=== PATIENT | female | born 1955 | race Caucasian/White ===

== ENCOUNTER 2018-09-07 11:01 | Day surgery (SDC) | payer BC ==
--- NOTE | 2018-09-07 06:34 | History and Physical Report ---
DATE: 09/06/2018. CHIEF COMPLAINT AND HISTORY OF CHIEF COMPLAINT: This patient presents with a history of an intractable lumbar radiculopathy. Due to the failure of all therapies, she presents today for an implanted spinal catheter infusion trial with hydromorphone to determine if the implantation of a permanent system can be of any value in pain control. PAST MEDICAL HISTORY: Noncontributory. PAST SURGICAL HISTORY: Multiple shoulder surgeries, knee surgery, scapular surgery. MEDICATIONS ON ADMISSION: To be provided. ALLERGIES: None. SOCIAL HISTORY: Caffeine. FAMILY HISTORY: Hypertension, coronary artery disease, cancer. REVIEW OF SYSTEMS: The patient is appropriate and in no acute distress. The remainder of the systems review shows headaches, peripheral edema, reflux, degenerative arthritis, fibromyalgia, depression, difficulty sleeping. PHYSICAL EXAMINATION: General: Height and weight unavailable. Vital Signs: Not available. HEENT: Within normal limits. Lungs: Clear. Heart: Regular rate and rhythm. Abdomen: Nontender. Musculoskeletal: Examination of the musculoskeletal system shows diffuse tenderness throughout the lumbar spine. Range of motion does produce pain into both legs across the front and back surfaces. Motor function shows mild weakness to the right. Sensory abnormalities noted bilaterally. Neurologic: Cranial nerves are intact. Ambulation: Assistive device utilized. IMPRESSION: LUMBAR RADICULOPATHY, ICD-10 CODE M54.16 AND M54.17. PLAN: The patient is here for an implanted catheter infusion trial with hydromorphone to determine if the implantation of a permanent system can be of any value in pain control. The potential risks, side effects, and complications have all been carefully reviewed and discussed. Information provided through the ore crushing dust collector including CD Rom also explaining the procedure and surgery were discussed and reviewed. The patient was put in contact with a clinical specialist for [employer] who also discussed and reviewed risks, side effects, and complications. She understands and has consented and is here for the trial. The procedure will be considered outpatient, although an overnight stay will be evaluated. An epidural blood patch will be performed which will result in the patient lying flat for four hours and then be slowly elevated over one hour. At that point, she can be evaluated for discharge. JOB NUMBER: [id number] cc: Bereket Mayers M.D. MTDD
[~2018-09-07 11:01] MED LIST: ACETAMINOPHEN 1,000 MG/100 ML BTL IV ONE; CEFAZOLIN 2 Gram 2 GM/50 ML BAG IVPB ONE; FAMOTIDINE 20MG TABLET PO ONE; HYDROMORPHONE PF 2MG/ML AMP 0.008 MG in 0.9 % SODIUM CHLORIDE 10ML VIA 0.996 ML IV ONE; HYDROMORPHONE PF 2MG/ML AMP 8 MG in 0.9 % SODIUM CHLORIDE 500ML 496 ML IV ONE; MECLIZINE 25 MG TABLET PO ONE; METOCLOPRAMIDE 10 MG TABLET PO ONE
[2018-09-07] MEDS ORDERED: MIDAZOLAM HCL 2MG/2ML VIAL IV ONE (11:02)
[2018-09-07] MEDS ORDERED: 0.9 % SODIUM CHLORIDE 10 ML VIAL IVP ONE (11:02)
[2018-09-07] MEDS ORDERED: PROPOFOL 10 MG/ML VIAL IV ONE (11:02)
[2018-09-07] MEDS ORDERED: CEFAZOLIN 1G VIAL IM ONE (11:02)
[2018-09-07] MEDS ORDERED: LIDOCAINE 1% W/EPI 1:200,000 MPF 30ML SQ ONE (11:02)
[2018-09-07] MEDS ORDERED: LIDOCAINE 2% MDV (20MG/ML) 20ML VIAL IV ONE (11:02)
[2018-09-07] MEDS ORDERED: BUPIVACAINE 0.5% W/EPI MPF 30 ML VIAL IVP ONE (11:02)
[2018-09-07] MEDS ORDERED: FENTANYL PF 100MCG/2ML VIAL IV ONE (11:02)
[2018-09-07] MEDS ORDERED: DIPHENHYDRAMINE HCL 25 MG CAPSULE PO PRN ×2 (14:16)
[2018-09-07] MEDS ORDERED: METOCLOPRAMIDE HCL 10 MG/2 ML VIAL IVP PRN (14:16)
[2018-09-07] MEDS ORDERED: ACETAMINOPHEN 325 MG TAB PO PRN ×2 (14:16)
[2018-09-07] MEDS ORDERED: METOCLOPRAMIDE 10 MG TABLET PO PRN (14:16)
[2018-09-07] MEDS ORDERED: HYDROCODONE/APAP 7.5/325MG TABLET PO PRN ×2 (14:16)
[2018-09-07] MEDS ORDERED: HYDROMORPHONE HCL 2 MG/ML VIAL IM PRN ×2 (14:16)
[2018-09-07] MEDS ORDERED: OXYCODONE/APAP 10MG-325MG TABLET PO PRN ×2 (14:16)
[2018-09-07] MEDS ORDERED: NALOXONE 0.4 MG/1 ML VIAL IVP PRN (14:16)
[2018-09-07] MEDS ORDERED: RINGERS SOLUTION,LACTATED 1,000 ML IV SCH (14:16)
[2018-09-07] MEDS ORDERED: TEMAZEPAM 15 MG CAPSULE PO PRN ×2 (14:16)
[2018-09-07] MEDS ORDERED: AL HYDROX/MAG HYDROX 30ML UD PO PRN (14:16)
[2018-09-07] MEDS ORDERED: DIPHENHYDRAMINE HCL 50 MG/ML VIAL IVP PRN ×2 (14:16)
[2018-09-07] MEDS ORDERED: SENNOSIDES/DOCUSATE SODIUM UD CAPSULE PO PRN ×2 (14:16)
[2018-09-07] MEDS ORDERED: MORPHINE SULFATE 30MG TABLET.ER PO PRN (15:37)
[2018-09-07] MEDS ORDERED: CEFAZOLIN 2 Gram 2 GM/50 ML BAG IVPB SCH (20:30)
--- NOTE | 2018-09-09 10:47 | Operative Note ---
DATE OF SURGERY: 09/07/2018. PREOPERATIVE DIAGNOSIS: INTRACTABLE LUMBAR RADICULOPATHY, ICD-10 CODE M54.16 AND M54.17. OPERATION: 1. Fluoroscopically guided access spinal space at L3-4. Placement of thin- walled spinal catheter at T11-12. 2. Diagnostic myelography with radiologic supervision and interpretation. 3. Spinal bolus of hydromorphone at 0.004 mg into spinal space. 4. Incision, subcutaneous dissection, and anchoring of spinal catheter to the supraspinous fascia with an anchoring device and nonabsorbable suture. 5. Incision, subcutaneous dissection, and creation of subcutaneous pouch at the left posterior gluteal margin tunneling catheter into pouch. Interface spinal catheter to the second catheter component by way of connector. 6. Tunnelling secondary catheter component 6.0 cm superior to the posterior gluteal margin pouch, exiting the skin. 7. Interface the external pump set to deliver hydromorphone at 0.08 mg a day. 8. Closure of midline incision with Stratafix, #2-0 for the fascia and #3-0 for the skin. Steri-strips were placed. Left posterior gluteal margin pouch was closed with running nylon. 9. Epidural blood patch at L4-5 with 20 mL of autologous blood with sterile technique, left antecubital. 10. Patient was transported to recovery room flat with a pillow under the head and knees. He was stable with no side effects and full functionality of the extremities noted. No unusual pain pattern identified. SURGEON: Parveen Hartmann D.O. ANESTHESIA: Local sedation. ANESTHESIA PROVIDER: Henri Avalos CRNA. INDICATION: This patient presents with a history of intractable lumbar radiculopathy. Due to the failure of therapy, she is here for a spinal opioid infusion trial to determine if the implantation of a permanent system can be of any value in pain control. DESCRIPTION OF PROCEDURE: Intravenous lines, vital sign monitoring, and intravenous sedation. Prepped and draped with sterile technique under imaging. Spinal interspace at L3-4 was marked and infiltrated. A 20-gauge spinal needle was placed, beveled with long access in a paramedian approach, using AP and lateral imaging. The needle was advanced into the spinal space on the lateral image. With cerebrospinal fluid flow, a thin-walled spinal catheter was advanced and positioned at T11-12. Diagnostic myelography was performed. Flow characteristics were appropriate for the space with no obstructions and no unusual flow characteristics noted. With this identified for appropriate position, a bolus of hydromorphone 0.004 mg was given in the spinal space. Cerebrospinal fluid was still noted through the catheter. The catheter was clamped. The skin above and below the needle was the infiltrated. An incision was made and subcutaneous dissection was conducted to the supraspinous fascia. The needle was removed and the catheter was anchored to the supraspinous fascia with an anchoring device and nonabsorbable suture. At the left posterior gluteal margin, the site ultimately for the pump itself, the skin was infiltrated. An incision was made and subcutaneous dissection was conducted to form a small subcutaneous pouch. A tunneling tool was then used to carry the spinal catheter into the posterior pouch. The spinal catheter was then interfaced with a second catheter component by way of a connector. The second catheter component was tunnelled 6.0 cm superior to this site exiting the skin. The external catheter was then interfaced with the external pump which was set to deliver hydromorphone at 0.08 mg a day. The midline incision was closed with Stratafix suture, #2-0 for the fascia #3-0 for the skin. Steri-strips were placed. The left posterior pouch was closed with running nylon. At L4-5 which was one level below the dural puncture, the skin was infiltrated. An 18-gauge Tuohy needle was placed with loss of resistance into the epidural space. Simultaneously, 20 mL of autologous blood was drawn with sterile technique from the left antecubital area and was placed onto the field. An epidural blood patch was performed at this level with this blood. The needle was removed. Dressings were placed securing the catheter and all connections under sterile dressing. She was transported to the recovery room flat with a pillow under his head and knees. Full functionality was noted. No unusual pain pattern was identified. She will be kept flat for four hours and will then be slowly elevated for one hour. She will then be considered for possible discharge. DISCHARGE INSTRUCTIONS: 1. The sites are to remain clean and dry. No showering or bathing in any way that would disrupt the dressings. If this happens, contact the clinic. 2. Standard medications to be resumed including Levaquin the antibiotic 500 mg once a day for 14 days. 3. The trial will run for 14 days. During this time, three increases will be scheduled. 4. All other instructions were provided and numbers to contact with problems were given. 5. She will be discharged JOB NUMBER: [id number] cc: Bereket Mayers M.D. NARESH
--- NOTE | 2018-09-10 17:06 | RADIOLOGY REPORT ---
DATE: 09/07/2018 at 1:52 p.m. EXAM: AP OF THE THORACOLUMBAR SPINE. HISTORY: POST PAIN PUMP TRIAL. TECHNIQUE: Single AP view of the thoracolumbar spine obtained beginning at the approximate T3 level and extending down into the upper sacrum. COMPARISON: No prior spine series with which to compare. FINDINGS: Tubing is seen overlying the left side of the abdomen with a faint catheter-like density extending to the spine along the left side of the L3-4 interspace and then probably ascending up to the T12 level where there is a tiny metallic dot, presumably a marker applied to the superior extent of the pain pump catheter. There is a short, curvilinear catheter-like density overlying the right mid abdomen at the level of the L2 vertebra of uncertain significance measuring about 3.0 cm in length. Clinical correlation as to the nature of this structure is suggested. There is probably some contrast in the spinal canal overlying the upper sacrum. IMPRESSION: 1. TIP OF THE PAIN PUMP IS PROBABLY AT THE T12 LEVEL DESCRIBED ABOVE. 2. APPROXIMATELY 3.0 CM IN LENGTH, SLIGHTLY CURVILINEAR DENSITY OVERLYING THE RIGHT MID ABDOMEN. CLINICAL CORRELATION IS SUGGESTED. 3. SOME APPARENT RESIDUAL CONTRAST MEDIA IN THE SPINAL CANAL OVERLYING THE UPPER SACRUM. JOB NUMBER: [id number] MTDD
== END 2018-09-07 19:27 | disposition home or self-care (01) ==
LOC: SUR 11:01 → MEDSURG 14:32 → SUR 19:27
PROVIDERS: ATTEND Pain Medicine Interventional Pain Medicine
DX: M54.16 Radiculopathy, lumbar region (principal); M54.17 Radiculopathy, lumbosacral region
CPT/HCPCS: 62350; 62362; 62273; 00630; 72020; 94760; J3010; J0690; J1170; J7040

== ENCOUNTER 2018-09-21 11:38 | Day surgery (SDC) | payer BC ==
--- NOTE | 2018-09-21 06:59 | History and Physical - [place] ---
CHIEF COMPLAINT/HISTORY OF CHIEF COMPLAINT: This patient with an ongoing implanted catheter trial of Hydromorphone is here for a permanent implant, due to the success of the trial and the failure of other therapies. PAST MEDICAL HISTORY: Noncontributory. PAST SURGICAL HISTORY: Multiple shoulder surgeries, knee surgeries, and scapular surgery. MEDICATIONS ON ADMISSION: List to be provided. ALLERGIES: None. FAMILY/PSYCHOSOCIAL HISTORY: Social history - Caffeine. Family history - Hypertension, coronary artery disease, and cancer. SYSTEMS REVIEW: The patient is appropriate in no acute distress. The remainder of the systems review is positive for headaches, peripheral edema, reflux, degenerative arthritis, fibromyalgia, depression and difficulty sleeping. PHYSICAL EXAMINATION: Height and weight are not known. Vital signs are not available. HEENT: Within normal limits. LUNGS: Clear. HEART: Regular rate and rhythm. ABDOMEN: Nontender. MUSCULOSKELETAL: Examination of the musculoskeletal system shows diffuse tenderness throughout the lumbar spine. Dressings are in place for the implanted catheter trial. The underlying pain pattern is bilateral lower extremity. Motor and sensory field evaluation shows weakness right lower extremity. Sensory abnormalities noted across L4-L5 bilateral. NEUROLOGIC: Cranial nerves are intact. Ambulation - Assistive device dependent. IMPRESSION: 1. LUMBAR RADICULOPATHY, ICD-10 CODE M54.16 ND M54.17. 2. IMPLANTED SPINAL CATHETER INFUSION TRIAL USING HYDROMORPHONE. PLAN: The patient is here for implantation of a permanent system with an ongoing successful implanted catheter trial. The procedure will be considered outpatient, although an overnight stay will be evaluated. JOB NUMBER: [id number] MTDD
[~2018-09-21 11:38] MED LIST changes: +HYDROMORPHONE HCL 0.04 GM in 0.9 % SODIUM CHLORIDE 10ML VIA 20 ML IV ONE; -HYDROMORPHONE PF 2MG/ML AMP 8 MG in 0.9 % SODIUM CHLORIDE 500ML 496 ML IV ONE
[2018-09-21] MEDS ORDERED: CEFAZOLIN 1G VIAL IM ONE (11:39)
[2018-09-21] MEDS ORDERED: 0.9 % SODIUM CHLORIDE 10 ML VIAL IVP ONE (11:39)
[2018-09-21] MEDS ORDERED: PROPOFOL 10 MG/ML VIAL IV ONE (11:39)
[2018-09-21] MEDS ORDERED: MIDAZOLAM HCL 2MG/2ML VIAL IV ONE (11:39)
[2018-09-21] MEDS ORDERED: LIDOCAINE 1% W/EPI 1:200,000 MPF 30ML SQ ONE (11:39)
[2018-09-21] MEDS ORDERED: FENTANYL PF 100MCG/2ML VIAL IV ONE (11:39)
[2018-09-21] MEDS ORDERED: LIDOCAINE 2% MDV (20MG/ML) 20ML VIAL IV ONE (11:39)
[2018-09-21] MEDS ORDERED: BUPIVACAINE 0.5% W/EPI MPF 30 ML VIAL IVP ONE (11:39)
--- NOTE | 2018-09-23 07:50 | Operative Note ---
DATE: 09/21/2018. PREOPERATIVE DIAGNOSES: 1. LUMBAR RADICULOPATHY, ICD-10 CODE M54.16 AND M54.17. 2. IMPLANTED SPINAL CATHETER INFUSION TRIAL WITH HYDROMORPHONE. PROCEDURES: 1. Fluoroscopically guided incision, subcutaneous dissection, and creation of subcutaneous pouch at the left posterior gluteal margin for placement of pump identified as Medtronic programmable 20 mL pump prefilled with hydromorphone 2.0 mg per mL. 2. Revision and resection of indwelling spinal catheter with second catheter component by way of connector. 3. Removal of external spinal catheter. 4. Interface revised catheter to pump. Placement of pump into pouch securing to posterior fascia with nonabsorbable suture at three points with pump eyelets. 5. Placement of curved 24-gauge Tyson needle into access port aspirating and clearing 1.0 mL of catheter contents, clearing catheter of opioid and cerebrospinal fluid mixture. 6. Diagnostic myelography with radiologic supervision and interpretation confirming functionality of the pump catheter. 7. Closure of incision with Stratafix suture, #2-0 for the fascia and #3-0 for the skin. Dermabond closure. 8. Programming of pump to deliver by continuous infusion hydromorphone at 0.7 mg per day. SURGEON: Parveen Hartmann D.O. ANESTHESIA: Local sedation. ANESTHESIA PROVIDER: Rashid Jones CRNA. INDICATIONS: This patient presents with a history of intractable lumbar radiculopathy. Due to the failure of therapy, implanted spinal catheter infusion trial with hydromorphone was conducted with 75 percent pain control. Due to the failure of all other therapy, the patient is here for implantation of a permanent system. DESCRIPTION OF PROCEDURE: Intravenous lines, vital sign monitoring, and intravenous sedation. Prepped and draped with sterile technique. The dressings were removed. At the left posterior gluteal margin, the skin was infiltrated. An incision was made and subcutaneous dissection was conducted to form a pouch of suitable size and depth for the pump identified as a Medtronic 20 mL programmable pump. The external catheter was interfaced to the indwelling catheter which was identified. This was clamped and cut, and the external catheter was removed by pulling away from the incision. The indwelling catheter which had been resected was then interfaced with a second catheter component. This revision was interfaced with the internal and second catheter components by way of a connector. The second catheter component was then interfaced to a pump and placed onto the field prefilled with hydromorphone 2.0 mg per mL. The pump catheter connection was then placed into the formed subcutaneous pouch and secured to the posterior fascia with nonabsorbable suture. Antibiotic irrigation and Bovie for hemostasis. A 24-gauge Tyson needle was inserted into the access port, and 1.0 mL of catheter contents was aspirated, clearing the catheter of opioid and cerebrospinal fluid mixture. Contrast was then injected through the access port. The resulting myelogram with radiologic supervision and interpretation showed flow characteristics moving through the pump with the pump catheter connection intact. There were no kinks, bends, or leaks. The tip of the catheter was identified at T12 with appropriate flow characteristics noted confirming functionality. The incision was then closed using Stratafix suture, #2-0 for the fascia and #3- 0 for the skin. Dermabond closure. She was transported to the recovery room stable with no side effects from the procedure or the sedation. The pump was programmed to deliver by continuous infusion hydromorphone at 0.7 mg per day. She was monitored appropriately and then prepared for dischargee at her request. DISCHARGE INSTRUCTIONS: 1. The sites are to remain clean and dry. Showering is permissible but no sitting in water. 2. Standard medications to be resumed. She will continue her antibiotic with Levaquin 500 mg once a day for another seven days. 3. The office is to contact the patient in 12 to 24 hours to set up a time in the next in seven to ten days to evaluate the sites. Until then her activities should stay low. 4. All other instructions were provided including numbers to contact with problems. She will be discharged to home. JOB NUMBER: [id number] cc: Bereket Mayers M.D. NARESH
== END 2018-09-21 14:52 | disposition home or self-care (01) ==
LOC: SUR 11:38
PROVIDERS: ATTEND Pain Medicine Interventional Pain Medicine
DX: M54.16 Radiculopathy, lumbar region (principal); M54.17 Radiculopathy, lumbosacral region
CPT/HCPCS: 62362; 62350; 01936; 62367; Q9967; J3010; J0690; J1170; C1755